=== PATIENT | male | born 1965 | race American Indian/Alaskan Native ===

== ENCOUNTER 2018-04-25 12:00 | Emergency (ER) | payer MEDICAID ==
--- NOTE | 2018-04-25 14:04 | Emergency Department Report ---
ED General Adult HPI - General Chief complaint: Abdominal Pain Stated complaint: DIZZINESS Time Seen by Provider: 04/25/18 13:47 Source: patient Mode of arrival: Ambulatory Limitations: No Limitations - History of Present Illness Initial comments: This is a 53-year-old -Armenian male who presents with multiple complaints. Patient has a past medical history of gout and peptic ulcer disease. Patient states he is having a gout flare with pain to right knee for the past week. Patient states started and right great toe and now and right knee. Patient states initially he had some swelling but continues to have painful range of motion. He is also complaining of pain that is 8 out of 10 on pain scale to right knee and worse with movement. He is concerned because he is left handed and hardly is right hand for repetitive movement. Patient denies swelling or bruising or recent injury to right wrist. He states he went to [facility] but was unable to be seen because they do not take Medicaid insurance. He is also asking for treatment of ulcer irritation. Patient states 2 weeks ago he had increased nausea with burning to upper abdomen. Today he is complaining of epigastric pain that is worse prior to eating. Patient states pain is relieved after eating. Patient is also complaining for dysuria for 1 month. He denies frequency and urgency. He is currently feeling a burning sensation and sharp cramps. Patient denies fever, nausea and vomiting, chest pain, shortness of breath, erythema, or swelling. -: month(s) Location: abdomen (epigastric pain), right, upper extremity (right wrist), lower extremity (right knee) Radiation: non-radiation Severity scale (0 -10): 8 Quality: burning, aching Consistency: intermittent Improves with: eating Worsens with: movement Associated Symptoms: denies other symptoms Treatments Prior to Arrival: NSAID (ibuprofen) - Related Data Previous Rx's Medication Instructions Recorded Last Taken Type Ibuprofen [Motrin 800 MG tab] 800 mg PO Q8HR PRN #15 tablet 04/25/18 Unknown Rx Omeprazole 40 mg PO DAILY #30 capsule. 04/25/18 Unknown Rx Allergies Allergy/AdvReac Type Severity Reaction Status Date / Time No Known Allergies Allergy Unverified 04/25/18 12:09 ED Review of Systems ROS: Stated complaint: DIZZINESS Other details as noted in HPI Constitutional: denies: chills, fever Respiratory: denies: cough, shortness of breath, wheezing Cardiovascular: denies: chest pain, palpitations Gastrointestinal: abdominal pain. denies: nausea, diarrhea Genitourinary: dysuria. denies: urgency, frequency, hematuria, discharge Musculoskeletal: arthralgia (right knee and right wrist pain). denies: back pain, joint swelling Skin: denies: rash, lesions Psychiatric: denies: anxiety, depression ED Past Medical Hx - Past Medical History Previous Medical History?: Yes Additional medical history: gout - Surgical History Past Surgical History?: No - Social History Smoking Status: Never Smoker Substance Use Type: None - Medications Home Medications: Home Medications Medication Instructions Recorded Confirmed Last Taken Type Ibuprofen [Motrin 800 MG tab] 800 mg PO Q8HR PRN #15 tablet 04/25/18 Unknown Rx Omeprazole 40 mg PO DAILY #30 capsule. 04/25/18 Unknown Rx ED Physical Exam - General Limitations: No Limitations General appearance: alert, in no apparent distress, obese (morbidly obese) - Respiratory Respiratory exam: Present: normal lung sounds bilaterally. Absent: respiratory distress - Cardiovascular Cardiovascular Exam: Present: regular rate, normal rhythm. Absent: systolic murmur, diastolic murmur, rubs, gallop - GI/Abdominal GI/Abdominal exam: Present: soft, tenderness (left upper quadrant tenderness), normal bowel sounds. Absent: distended, guarding, rebound, rigid, organomegaly , mass - Expanded Upper Extremity Exam Right Shoulder Exam: Present: normal inspection, full ROM Upper Arm exam: Present: normal inspection, full ROM Elbow exam: Present: normal inspection, full ROM Forearm Wrist exam: Present: normal inspection, full ROM Hand Wrist exam: Present: full ROM, tenderness (in palmar surface). Absent: abrasion, laceration, ecchymosis, deformity, crepidus, dislocation, erythema, amputation, nail avulsion, subungual hematoma Neuro motor exam: Present: wrist extension intact, thumb opposition intact, thumb IP flexion intact, thumb adduction intact, fingers 2-5 abduction intact Neurosensory exam: Present: radial nerve intact, ulnar nerve intact, median nerve intact Vascular: Present: normal capillary refill, radial pulse - Expanded Lower Extremity Exam Right Hip exam: Present: normal inspection, full ROM Upper Leg exam: Present: normal inspection, full ROM Knee exam: Present: pain w/ pronation/supination, full knee extension. Absent: abrasion, laceration, ecchymosis, deformity, crepidus, dislocation, erythema, effusion Lower Leg exam: Present: normal inspection, full ROM Ankle exam: Present: normal inspection, full ROM Foot/Toe exam: Present: normal inspection, full ROM Neuro vascular tendon exam: Present: no vascular compromise Gait: Positive: observed and normal - Neurological Exam Neurological exam: Present: alert, oriented X3 - Psychiatric Psychiatric exam: Present: normal affect, normal mood - Skin Skin exam: Present: warm, dry, intact, normal color. Absent: rash ED Course Vital Signs 04/25/18 04/25/18 12:09 18:30 Temperature 97.9 F Pulse Rate 73 72 Respiratory 18 18 Rate Blood Pressure 145/75 Blood Pressure 148/82 [Left] O2 Sat by Pulse 96 100 Oximetry ED Medical Decision Making - Lab Data Result diagrams: 04/25/18 15:00 - Radiology Data Radiology results: report reviewed, image reviewed RIGHT WRIST, 2 VIEWS: History: Right wrist pain. 2 views views demonstrate the carpal bones to be well mineralized with well preserved bony mineralization and interosseous joint spaces. The carpal and adjacent articular bones have normal contours. The surrounding soft tissues are unremarkable. IMPRESSION: Unremarkable right wrist. EXAM: CT ABDOMEN PELVIS WO CON HISTORY: left upper quadrant tenderness TECHNIQUE: Spiral CT scanning of the abdomen and pelvis. No oral or IV contrast administered. Multiplanar reformations. PRIORS: None. FINDINGS: Abdomen: Visualized lung bases grossly unremarkable. Solid organ evaluation is limited due to lack of IV contrast. Multiple calcification(s) noted in the bilateral kidneys, largest measuring approximately 6 mm in left kidney. No significant hydronephrosis or abnormal perinephric fluid collection. Rounded hypodensity in the right kidney measures approximately 3.5 cm. No radiopaque gallstones. Remainder of visualized abdominal parenchyma grossly unremarkable. Pelvis: No appreciable calcifications or significant dilatation in the distal ureters. Bowel grossly unremarkable. Appendix within normal limits. Shotty lymph nodes scattered along the retroperitoneum may be reactive, but nonspecific. No significant free peritoneal fluid or loculated fluid collection. Abdominal aorta non-aneurysmal. Axial skeleton grossly unremarkable. IMPRESSION: 1. Bilateral nephrolithiasis. No significant hydronephrosis. 2. Right renal hypodensity possibly representing cyst, but nonspecific. Correlation with renal ultrasound may be confirmatory, as clinically indicated. - Medical Decision Making Patient is stable and was examined by me. Vitals stable. Obtained labs, x-ray of right wrist, and CT of abdomen. All labs unremarkable. Review CT and x-ray report with patient. Patient given copy of warts to follow up with primary care provider. Start ibuprofen and omeprazole for gastroenteritis, carpal tunnel and muscle strain. Discussed plan with patient and agreed to plan. No further questions noted by the patient. Discharged home in stable condition. Follow up with PCP in 2-3 days. Critical care attestation.: If time is entered above; I have spent that time in minutes in the direct care of this critically ill patient, excluding procedure time. ED Disposition Clinical Impression: Carpal tunnel syndrome of right wrist, Right wrist pain, Nephrolithiasis, Gastroenteritis Right knee pain Qualifiers: Chronicity: acute Qualified Code(s): M25.561 - Pain in right knee Abdominal pain Qualifiers: Abdominal location: epigastric Qualified Code(s): R10.13 - Epigastric pain Muscle strain of right knee Qualifiers: Encounter type: initial encounter Qualified Code(s): S86.911A - Strain of unspecified muscle(s) and tendon(s) at lower leg level, right leg, initial encounter Disposition: TO HOME OR SELFCARE Is pt being admited?: No Does the pt Need Aspirin: No Condition: Stable Instructions: Muscle Strain (ED), Carpal Tunnel Syndrome (ED), Gastroenteritis (ED) Additional Instructions: Increase fluid intake. Follow-up with primary care provider in 2-3 days for further management and care. Prescriptions: Ibuprofen [Motrin 800 MG tab] 800 mg PO Q8HR PRN #15 tablet PRN Reason: Pain , Severe (7-10) Omeprazole 40 mg PO DAILY #30 capsule. Referrals: [facility] [Outside] - 3-5 Days [facility] [Outside] - 3-5 Days [facility] [Outside] - 3-5 Days Time of Disposition: 18:08 Print Language: UKRAINIAN
[2018-04-25] MEDS ORDERED: NARCAN 2 MG/2 ML ONE (14:09)
--- NOTE | 2018-04-25 15:33 | XRay Report ---
RIGHT WRIST, 2 VIEWS: History: Right wrist pain. 2 views views demonstrate the carpal bones to be well mineralized with well preserved bony mineralization and interosseous joint spaces. The carpal and adjacent articular bones have normal contours. The surrounding soft tissues are unremarkable. IMPRESSION: Unremarkable right wrist.
[2018-04-25 15:37] LABS: Hematocrit 40.6 % (35.5-45.6); Hemoglobin 13.6 gm/dl (11.8-15.2); Mean Corpuscular HGB Conc 34 % (32-34); Mean Corpuscular Hemoglobin 29 pg (28-32); Mean Corpuscular Volume 85 fl (84-94); Platelet Count 219 K/mm3 (140-440); Red Blood Count 4.75 M/mm3 (3.65-5.03); Red Cell Distribution Width 15.1 % (13.2-15.2)
--- NOTE | 2018-04-25 16:39 | Cat Scan Report ---
FINAL REPORT EXAM: CT ABDOMEN PELVIS WO CON HISTORY: left upper quadrant tenderness TECHNIQUE: Spiral CT scanning of the abdomen and pelvis. No oral or IV contrast administered. Multiplanar reformations. PRIORS: None. FINDINGS: Abdomen: Visualized lung bases grossly unremarkable. Solid organ evaluation is limited due to lack of IV contrast. Multiple calcification(s) noted in the bilateral kidneys, largest measuring approximately 6 mm in left kidney. No significant hydronephrosis or abnormal perinephric fluid collection. Rounded hypodensity in the right kidney measures approximately 3.5 cm. No radiopaque gallstones. Remainder of visualized abdominal parenchyma grossly unremarkable. Pelvis: No appreciable calcifications or significant dilatation in the distal ureters. Bowel grossly unremarkable. Appendix within normal limits. Shotty lymph nodes scattered along the retroperitoneum may be reactive, but nonspecific. No significant free peritoneal fluid or loculated fluid collection. Abdominal aorta non-aneurysmal. Axial skeleton grossly unremarkable. IMPRESSION: 1. Bilateral nephrolithiasis. No significant hydronephrosis. 2. Right renal hypodensity possibly representing cyst, but nonspecific. Correlation with renal ultrasound may be confirmatory, as clinically indicated.
[2018-04-25 18:44] VITALS: BP 148/82
== END 2018-04-25 18:35 | disposition home or self-care (01) ==
LOC: ED 12:00
DX: S86.911A Strain of unspecified muscle(s) and tendon(s) at lower leg level, right leg, initial encounter (principal); G56.01 Carpal tunnel syndrome, right upper limb; K52.9 Noninfective gastroenteritis and colitis, unspecified; N20.0 Calculus of kidney; R10.13 Epigastric pain; X58.XXXA Exposure to other specified factors, initial encounter; Y93.89 Activity, other specified; Y99.8 Other external cause status; Y92.89 Other specified places as the place of occurrence of the external cause
CPT/HCPCS: 36415; 74176; 84550; 85027; J2310

== ENCOUNTER 2018-11-12 16:09 | Emergency (ER) | payer OTHER ==
[2018-11-12 16:25] VITALS: BP 148/73
--- NOTE | 2018-11-12 16:28 | Emergency Department Report ---
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 Due to findings the following was ordered: CXR ED Disposition for MSE Condition: Stable
--- NOTE | 2018-11-12 17:44 | XRay Report ---
PROCEDURE: XR CHEST ROUTINE 2V TECHNIQUE: 2 views HISTORY: inhalation of dust, pain with breathing COMPARISONS: None FINDINGS: No infiltrate, pleural effusion, or pneumothorax seen. The cardiomediastinal silhouette is normal. IMPRESSION: No acute abnormality identified. . This document is electronically signed by Ino Wild MD., November 12 2018 05:42:07 PM ET
--- NOTE | 2018-11-12 19:04 | Emergency Department Report ---
ED General Adult HPI - General Chief complaint: Chest Pain Stated complaint: PAINFUL TO BREATH Time Seen by Provider: 11/12/18 16:20 Source: patient Mode of arrival: Ambulatory Limitations: No Limitations - History of Present Illness Initial comments: 53-year-old -Y[place]i male presents emerge department complaining of pain with deep breath and occasional cough after breathing in dust particles from a catalytic converter which she was changing last night. Reports no hemoptysis, no hematemesis, no wheezing,. No fever, chills, sweats. No shortness of breath. Severity scale (0 -10): 7 Quality: sharp Consistency: intermittent Improves with: none Worsens with: other (deep breath) Associated Symptoms: chest pain. denies: confusion, diaphoresis, loss of appetite, malaise, nausea/vomiting, shortness of breath, syncope - Related Data Previous Rx's Medication Instructions Recorded Last Taken Type Ibuprofen [Motrin 800 MG tab] 800 mg PO Q8HR PRN #15 tablet 04/25/18 Unknown Rx Omeprazole 40 mg PO DAILY #30 capsule. 04/25/18 Unknown Rx Ketorolac [Toradol] 10 mg PO Q6H PRN #12 tablet 06/11/18 Unknown Rx methOCARBAMOL [Robaxin TAB] 500 mg PO Q6H PRN #20 tablet 06/11/18 Unknown Rx Colchicine 0.6 mg PO Q8H PRN #12 tablet 07/24/18 Unknown Rx Ibuprofen [Motrin] 600 mg PO Q8H PRN #12 tablet 07/24/18 Unknown Rx predniSONE [Prednisone] 10 mg PO QAM 6 Days #1 tab.ds.pk 07/24/18 Unknown Rx ALBUTEROL Inhaler (OR & NICU) 1 puff IH Q4-6H PRN #1 inha 11/12/18 Unknown Rx [ProAir HFA Inhaler] predniSONE [Deltasone] 50 mg PO QDAY #5 tab 11/12/18 Unknown Rx Allergies Allergy/AdvReac Type Severity Reaction Status Date / Time No Known Allergies Allergy Verified 11/12/18 16:10 ED Review of Systems ROS: Stated complaint: PAINFUL TO BREATH Other details as noted in HPI Constitutional: denies: chills, fever Eyes: denies: eye pain, eye discharge, vision change ENT: denies: ear pain, throat pain Respiratory: denies: cough, shortness of breath, wheezing Cardiovascular: chest pain (with deep breaths). denies: palpitations Endocrine: no symptoms reported Gastrointestinal: denies: abdominal pain, nausea, diarrhea Genitourinary: denies: urgency, dysuria Musculoskeletal: denies: back pain, joint swelling, arthralgia Skin: denies: rash, lesions Neurological: denies: headache, weakness, paresthesias Psychiatric: denies: anxiety, depression Hematological/Lymphatic: denies: easy bleeding, easy bruising ED Past Medical Hx - Past Medical History Additional medical history: gout - Surgical History Past Surgical History?: No - Social History Smoking Status: Never Smoker Substance Use Type: Alcohol - Medications Home Medications: Home Medications Medication Instructions Recorded Confirmed Last Taken Type Ibuprofen [Motrin 800 MG tab] 800 mg PO Q8HR PRN #15 tablet 04/25/18 Unknown Rx Omeprazole 40 mg PO DAILY #30 capsule.dr 04/25/18 Unknown Rx Ketorolac [Toradol] 10 mg PO Q6H PRN #12 tablet 06/11/18 Unknown Rx methOCARBAMOL [Robaxin TAB] 500 mg PO Q6H PRN #20 tablet 06/11/18 Unknown Rx Colchicine 0.6 mg PO Q8H PRN #12 tablet 07/24/18 Unknown Rx Ibuprofen [Motrin] 600 mg PO Q8H PRN #12 tablet 07/24/18 Unknown Rx predniSONE [Prednisone] 10 mg PO QAM 6 Days #1 tab.ds.pk 07/24/18 Unknown Rx ALBUTEROL Inhaler (OR & NICU) 1 puff IH Q4-6H PRN #1 inha 11/12/18 Unknown Rx [ProAir HFA Inhaler] predniSONE [Deltasone] 50 mg PO QDAY #5 tab 11/12/18 Unknown Rx ED Physical Exam - General Limitations: No Limitations General appearance: alert, in no apparent distress - Head Head exam: Present: atraumatic, normocephalic - Eye Eye exam: Present: normal appearance, PERRL - ENT ENT exam: Present: normal exam, normal orophraynx, mucous membranes moist, TM's normal bilaterally - Neck Neck exam: Present: normal inspection, full ROM - Respiratory Respiratory exam: Present: normal lung sounds bilaterally. Absent: respiratory distress, wheezes, chest wall tenderness, accessory muscle use, decreased breath sounds - Cardiovascular Cardiovascular Exam: Present: regular rate, normal rhythm. Absent: systolic murmur, diastolic murmur, rubs, gallop - GI/Abdominal GI/Abdominal exam: Present: soft, normal bowel sounds. Absent: tenderness, guarding, hypoactive bowel sounds, organomegaly, mass, bruit, pulsatile mass - Rectal Rectal exam: Present: deferred - Extremities Exam Extremities exam: Present: normal inspection - Back Exam Back exam: Present: normal inspection. Absent: CVA tenderness (R), CVA tenderness (L), paraspinal tenderness, vertebral tenderness - Neurological Exam Neurological exam: Present: alert, oriented X3 - Psychiatric Psychiatric exam: Present: normal affect, normal mood - Skin Skin exam: Present: warm, dry, intact, normal color. Absent: rash ED Course Vital Signs 11/12/18 16:21 Temperature 98.5 F Pulse Rate 61 Respiratory 24 Rate Blood Pressure 148/73 O2 Sat by Pulse 97 Oximetry ED Medical Decision Making - Radiology Data Radiology results: report reviewed Chest x-ray clear no acute processes Critical care attestation.: If time is entered above; I have spent that time in minutes in the direct care of this critically ill patient, excluding procedure time. ED Disposition Clinical Impression: Chest pain, Pneumonopathy due to inhalation of dust Disposition: DC-01 TO HOME OR SELFCARE Is pt being admited?: No Does the pt Need Aspirin: No Condition: Stable Instructions: Chest Pain (ED) Prescriptions: predniSONE [Deltasone] 50 mg PO QDAY #5 tab ALBUTEROL Inhaler (OR & NICU) [ProAir HFA Inhaler] 1 puff IH Q4-6H PRN #1 inha PRN Reason: Cough Referrals: [facility] [Provider Group] - 3-5 Days
== END 2018-11-12 19:21 | disposition home or self-care (01) ==
LOC: ED 16:09
DX: J66.8 Airway disease due to other specific organic dusts (principal); Z87.39 Personal history of other diseases of the musculoskeletal system and connective tissue
CPT/HCPCS: 71046; 93005; 93010

== ENCOUNTER 2021-03-26 23:19 | Emergency (ER) | payer OTHER ==
--- NOTE | 2021-03-27 04:39 | XRay Report ---
CHEST 2 VIEWS INDICATION / CLINICAL INFORMATION: cough and sob +Covid. COMPARISON: None available. FINDINGS: SUPPORT DEVICES: None. HEART / MEDIASTINUM: No significant abnormality. LUNGS / PLEURA: No significant pulmonary abnormality. No significant pleural effusion. No pneumothora x. ADDITIONAL FINDINGS: No significant additional findings. IMPRESSION: 1. No acute abnormality of the chest. Signer Name: Cresencio Ramírez MD Signed: 03/27/2021 4:35 AM Workstation Name: [employer] [id number]
--- NOTE | 2021-03-27 05:58 | Emergency Department Report ---
- General Chief Complaint: Dyspnea/Respdistress Stated Complaint: JENNIFER/POS COVID Time Seen by Provider: 03/27/21 01:05 Source: patient Mode of arrival: Ambulatory Limitations: No Limitations - History of Present Illness Initial Comments: 56-year-old -[place] male past history of hypertension and elevated BMI presents emergency department complaining of positive Covid test a few days ago experiencing some dyspnea chest aches coryza off and on since the onset. Reports no hemoptysis no hematemesis no fevers chills or sweats no no nausea vomiting no vomiting MD Complaint: sore throat, rhinorrhea, nasal congestion -: Gradual Severity: mild, moderate Severity scale (0 -10): 1 Quality: dull Consistency: constant Improves With: nothing Worsens With: nothing Associated Symptoms: myalgias, rhinorrhea, cough, nausea. denies: right sweats, weight loss, hoarseness - Related Data Previous Rx's Medication Instructions Recorded Last Taken Type Ibuprofen [Motrin 800 MG tab] 800 mg PO Q8HR PRN #15 tablet 04/25/18 Unknown Rx Omeprazole 40 mg PO DAILY #30 capsule.dr 04/25/18 Unknown Rx Ketorolac [Toradol] 10 mg PO Q6H PRN #12 tablet 06/11/18 Unknown Rx methOCARBAMOL [Robaxin TAB] 500 mg PO Q6H PRN #20 tablet 06/11/18 Unknown Rx Colchicine 0.6 mg PO Q8H PRN #12 tablet 07/24/18 Unknown Rx Ibuprofen [Motrin] 600 mg PO Q8H PRN #12 tablet 07/24/18 Unknown Rx predniSONE [Prednisone] 10 mg PO QAM 6 Days #1 tab.ds.pk 07/24/18 Unknown Rx Albuterol Mdi (or & Nicu Only) 1 puff IH Q4-6H PRN #1 inha 11/12/18 Unknown Rx [ProAir HFA Inhaler] predniSONE [Deltasone] 50 mg PO QDAY #5 tab 11/12/18 Unknown Rx Albuterol Mdi (or & Nicu Only) 1 puff IH Q4-6H PRN #1 inha 03/27/21 Unknown Rx [ProAir HFA Inhaler] guaiFENesin/CODEINE [Robitussin AC] 5 ml PO Q6HR #120 oral.liqd 03/27/21 Unknown Rx predniSONE [Deltasone] 20 mg PO QDAY #5 tab 03/27/21 Unknown Rx Allergies Allergy/AdvReac Type Severity Reaction Status Date / Time No Known Allergies Allergy Verified 11/12/18 16:10 ED Review of Systems ROS: Stated complaint: JENNIFER/POS COVID Other details as noted in HPI Comment: All other systems reviewed and negative ED Past Medical Hx - Past Medical History Previous Medical History?: Yes Hx Hypertension: Yes Hx Diabetes: Yes Additional medical history: gout - Surgical History Past Surgical History?: No - Social History Smoking Status: Never Smoker Substance Use Type: Alcohol - Medications Home Medications: Home Medications Medication Instructions Recorded Confirmed Last Taken Type Ibuprofen [Motrin 800 MG tab] 800 mg PO Q8HR PRN #15 tablet 04/25/18 Unknown Rx Omeprazole 40 mg PO DAILY #30 capsule. 04/25/18 Unknown Rx Ketorolac [Toradol] 10 mg PO Q6H PRN #12 tablet 06/11/18 Unknown Rx methOCARBAMOL [Robaxin TAB] 500 mg PO Q6H PRN #20 tablet 06/11/18 Unknown Rx Colchicine 0.6 mg PO Q8H PRN #12 tablet 07/24/18 Unknown Rx Ibuprofen [Motrin] 600 mg PO Q8H PRN #12 tablet 07/24/18 Unknown Rx predniSONE [Prednisone] 10 mg PO QAM 6 Days #1 tab.ds.pk 07/24/18 Unknown Rx Albuterol Mdi (or & Nicu Only) 1 puff IH Q4-6H PRN #1 inha 11/12/18 Unknown Rx [ProAir HFA Inhaler] predniSONE [Deltasone] 50 mg PO QDAY #5 tab 11/12/18 Unknown Rx Albuterol Mdi (or & Nicu Only) 1 puff IH Q4-6H PRN #1 inha 03/27/21 Unknown Rx [ProAir HFA Inhaler] guaiFENesin/CODEINE [Robitussin AC] 5 ml PO Q6HR #120 oral.liqd 03/27/21 Unknown Rx predniSONE [Deltasone] 20 mg PO QDAY #5 tab 03/27/21 Unknown Rx ED Physical Exam - General Limitations: No Limitations General appearance: alert, in no apparent distress - Head Head exam: Present: atraumatic, normocephalic - Eye Eye exam: Present: normal appearance, PERRL Pupils: Present: normal accommodation - ENT ENT exam: Present: normal exam, mucous membranes moist, TM's normal bilaterally - Neck Neck exam: Present: normal inspection, full ROM - Respiratory Respiratory exam: Present: normal lung sounds bilaterally. Absent: respiratory distress - Cardiovascular Cardiovascular Exam: Present: regular rate, normal rhythm. Absent: systolic murmur, diastolic murmur, rubs, gallop - GI/Abdominal GI/Abdominal exam: Present: soft, normal bowel sounds - Rectal Rectal exam: Present: deferred - Extremities Exam Extremities exam: Present: normal inspection - Back Exam Back exam: Present: normal inspection - Neurological Exam Neurological exam: Present: alert, oriented X3 - Psychiatric Psychiatric exam: Present: normal affect, normal mood - Skin Skin exam: Present: warm, dry, intact, normal color. Absent: rash ED Course Vital Signs 03/26/21 23:39 Temperature 99.2 F Pulse Rate 87 Respiratory 16 Rate Blood Pressure 180/82 O2 Sat by Pulse 94 Oximetry ED Medical Decision Making - Radiology Data Radiology results: report reviewed [facility] [address] [place] [address] XRay Report Signed Patient: JEREMY MOHAMUD MR#: [id number] : 1965 Acct:[id number] Age/Sex: 56 / M ADM Date: 03/26/21 Loc: ED Attending Dr: Ordering Physician: ANABEL EMERY Date of Service: 03/27/21 Procedure(s): XR chest routine 2V Accession Number(s): [id number] cc: ANABEL EMERY Fluoro Time In Minutes: CHEST 2 VIEWS INDICATION / CLINICAL INFORMATION: cough and sob +Covid. COMPARISON: None available. FINDINGS: SUPPORT DEVICES: None. HEART / MEDIASTINUM: No significant abnormality. LUNGS / PLEURA: No significant pulmonary abnormality. No significant pleural effusion. No pneumothorax. ADDITIONAL FINDINGS: No significant additional findings. IMPRESSION: 1. No acute abnormality of the chest. Signer Name: Cresencio Ramírez MD Signed: 03/27/2021 4:35 AM Workstation Name: [id number] Transcribed By: [place] Dictated By: Cresencio Ramírez MD Electronically Authenticated By: Cresencio Ramírez MD Signed Date/Time: 07/434 DD/ 3 TD/TT: Print Cancel - Medical Decision Making This patient presents with acute cough, most consistent with Covid call. Differential diagnosis includes bronchitis, pneumonia, asthma, hyperreactive airway disease. Presentation not consistent with acute bacterial pneumonia, influenza, asthma, transient airway hyperresponsiveness. Presentation not consistent with chronic causes of cough (including GERD, asthma, postnasal discharge, medication side effect, CHF, lung cancer or mass). Plan: CXR, supportive care, reassess Critical care attestation.: If time is entered above; I have spent that time in minutes in the direct care of this critically ill patient, excluding procedure time. ED Disposition Clinical Impression: Dyspnea due to COVID-19, Cough, URI (upper respiratory infection) Disposition: TO HOME OR SELFCARE Is pt being admited?: No Does the pt Need Aspirin: No Condition: Stable Instructions: Cool Mist Vaporizer, Shortness of Breath, Adult, [id number], Cough, Adult, [id number], Upper Respiratory Infection, Adult, COVID-19: How to Protect Yourself and Others - CDC, Cough, Adult, Prevent the Spread of COVID-19 if You Are Sick - CDC Prescriptions: predniSONE [Deltasone] 20 mg PO QDAY #5 tab Albuterol Mdi (or & Nicu Only) [ProAir HFA Inhaler] 1 puff IH Q4-6H PRN #1 inha PRN Reason: Cough guaiFENesin/CODEINE [Robitussin AC] 5 ml PO Q6HR #120 oral.liqd Referrals: FREIDA LIU MD [Staff Physician] - 3-5 Days
[2021-03-27 08:08] VITALS: BP 163/95
== END 2021-03-27 07:20 | disposition home or self-care (01) ==
LOC: ED 23:19
DX: U07.1 COVID-19 (principal); J06.9 Acute upper respiratory infection, unspecified; R05 Cough; I10 Essential (primary) hypertension; E11.9 Type 2 diabetes mellitus without complications
CPT/HCPCS: 71046; 99283

== ENCOUNTER 2021-07-12 17:35 | Emergency (ER) | payer OTHER ==
--- NOTE | 2021-07-12 18:29 | Emergency Department Report ---
ED General Adult HPI - General Chief complaint: Chest Pain Stated complaint: CHEST HURTS WHILE SNEEZING Time Seen by Provider: 07/12/21 18:04 Source: patient Mode of arrival: Ambulatory Limitations: No Limitations - History of Present Illness Initial comments: 56-year-old male, history of hypertension, presents to ED with right-sided chest pain. Patient states 3 days ago, he held in a sneeze and felt something pop in his right chest area. Patient here today complaining of continued pain. Worse with movement of torso. Denies any shortness of breath. -: days(s) (3) Location: chest Quality: aching Consistency: constant Improves with: immobilization Worsens with: movement Associated Symptoms: denies: shortness of breath - Related Data Previous Rx's Medication Instructions Recorded Last Taken Type Ibuprofen [Motrin 800 MG tab] 800 mg PO Q8HR PRN #15 tablet 04/25/18 Unknown Rx Omeprazole 40 mg PO DAILY #30 capsule. 04/25/18 Unknown Rx Ketorolac [Toradol] 10 mg PO Q6H PRN #12 tablet 06/11/18 Unknown Rx methOCARBAMOL [Robaxin TAB] 500 mg PO Q6H PRN #20 tablet 06/11/18 Unknown Rx Colchicine 0.6 mg PO Q8H PRN #12 tablet 07/24/18 Unknown Rx Ibuprofen [Motrin] 600 mg PO Q8H PRN #12 tablet 07/24/18 Unknown Rx predniSONE [Prednisone] 10 mg PO QAM 6 Days #1 tab.ds.pk 07/24/18 Unknown Rx Albuterol Mdi (or & Nicu Only) 1 puff IH Q4-6H PRN #1 inha 11/12/18 Unknown Rx [ProAir HFA Inhaler] predniSONE [Deltasone] 50 mg PO QDAY #5 tab 11/12/18 Unknown Rx Albuterol Mdi (or & Nicu Only) 1 puff IH Q4-6H PRN #1 inha 03/27/21 Unknown Rx [ProAir HFA Inhaler] guaiFENesin/CODEINE [Robitussin AC] 5 ml PO Q6HR #120 oral.liqd 03/27/21 Unknown Rx predniSONE [Deltasone] 20 mg PO QDAY #5 tab 03/27/21 Unknown Rx Naproxen [Naprosyn] 500 mg PO BID #20 tablet 07/12/21 Unknown Rx methOCARBAMOL [Robaxin TAB] 500 mg PO Q8HR PRN #20 tablet 07/12/21 Unknown Rx Allergies Allergy/AdvReac Type Severity Reaction Status Date / Time No Known Allergies Allergy Verified 11/12/18 16:10 ED Review of Systems ROS: Stated complaint: CHEST HURTS WHILE SNEEZING Other details as noted in HPI Comment: All other systems reviewed and negative Respiratory: denies: shortness of breath Cardiovascular: chest pain ED Past Medical Hx - Past Medical History Hx Hypertension: Yes Hx Diabetes: Yes Additional medical history: gout - Social History Smoking Status: Never Smoker Substance Use Type: Alcohol - Medications Home Medications: Home Medications Medication Instructions Recorded Confirmed Last Taken Type Ibuprofen [Motrin 800 MG tab] 800 mg PO Q8HR PRN #15 tablet 04/25/18 Unknown Rx Omeprazole 40 mg PO DAILY #30 capsule. 04/25/18 Unknown Rx Ketorolac [Toradol] 10 mg PO Q6H PRN #12 tablet 06/11/18 Unknown Rx methOCARBAMOL [Robaxin TAB] 500 mg PO Q6H PRN #20 tablet 06/11/18 Unknown Rx Colchicine 0.6 mg PO Q8H PRN #12 tablet 07/24/18 Unknown Rx Ibuprofen [Motrin] 600 mg PO Q8H PRN #12 tablet 07/24/18 Unknown Rx predniSONE [Prednisone] 10 mg PO QAM 6 Days #1 tab.ds.pk 07/24/18 Unknown Rx Albuterol Mdi (or & Nicu Only) 1 puff IH Q4-6H PRN #1 inha 11/12/18 Unknown Rx [ProAir HFA Inhaler] predniSONE [Deltasone] 50 mg PO QDAY #5 tab 11/12/18 Unknown Rx Albuterol Mdi (or & Nicu Only) 1 puff IH Q4-6H PRN #1 inha 03/27/21 Unknown Rx [ProAir HFA Inhaler] guaiFENesin/CODEINE [Robitussin AC] 5 ml PO Q6HR #120 oral.liqd 03/27/21 Unknown Rx predniSONE [Deltasone] 20 mg PO QDAY #5 tab 03/27/21 Unknown Rx Naproxen [Naprosyn] 500 mg PO BID #20 tablet 07/12/21 Unknown Rx methOCARBAMOL [Robaxin TAB] 500 mg PO Q8HR PRN #20 tablet 07/12/21 Unknown Rx ED Physical Exam - General Limitations: No Limitations General appearance: alert, in no apparent distress, obese - Head Head exam: Present: atraumatic, normocephalic - Eye Eye exam: Present: normal appearance, EOMI - ENT ENT exam: Present: mucous membranes moist - Neck Neck exam: Present: normal inspection - Respiratory Respiratory exam: Present: normal lung sounds bilaterally, chest wall tenderness (Right anterior chest). Absent: respiratory distress - Cardiovascular Cardiovascular Exam: Present: regular rate, normal rhythm - GI/Abdominal GI/Abdominal exam: Present: soft. Absent: distended, tenderness - Extremities Exam Extremities exam: Present: normal inspection - Neurological Exam Neurological exam: Present: alert, oriented X3 - Psychiatric Psychiatric exam: Present: normal affect, normal mood - Skin Skin exam: Present: warm, dry, intact, normal color ED Course Vital Signs 07/12/21 07/12/21 17:56 19:32 Temperature 98.4 F Pulse Rate 83 Respiratory 18 Rate Blood Pressure 199/58 Blood Pressure 130/68 [Left] O2 Sat by Pulse 97 Oximetry ED Medical Decision Making - EKG Data -: EKG Interpreted by Or EKG shows normal: sinus rhythm, axis, intervals, QRS complexes, ST-T waves Rate: normal - EKG Data Interpretation: no acute changes - Radiology Data Radiology results: report reviewed, image reviewed - Medical Decision Making 56-year-old male presents to ED with right-sided chest pain. Reports he felt a pop in his chest after attempting to hold in a sneeze. Chest x-ray is unremar kable. Patient has some chest wall tenderness on exam. He will be discharged at this time with prescriptions. Blood pressure was repeated and shows improvement in BP without intervention. Outpatient follow-up advised, return precautions given. - Differential Diagnosis Muscle strain, pneumothorax, rib fracture Critical care attestation.: If time is entered above; I have spent that time in minutes in the direct care of this critically ill patient, excluding procedure time. ED Disposition Clinical Impression: Acute chest wall pain Disposition: HOME / SELF CARE / HOMELESS Is pt being admited?: No Condition: Stable Instructions: Nonspecific Chest Pain, Adult Prescriptions: Naproxen [Naprosyn] 500 mg PO BID #20 tablet methOCARBAMOL [Robaxin TAB] 500 mg PO Q8HR PRN #20 tablet PRN Reason: Muscle Spasm Referrals: PRIMARY CARE, [Primary Care Provider] - 3-5 Days Time of Disposition: 19:41
--- NOTE | 2021-07-12 19:30 | XRay Report ---
CHEST 2 VIEWS INDICATION / CLINICAL INFORMATION: R chest pain. COMPARISON: 03/27/2021 FINDINGS: SUPPORT DEVICES: None. HEART / MEDIASTINUM: No significant abnormality. LUNGS / PLEURA: No significant pulmonary or pleural abnormality. No pneumothorax. ADDITIONAL FINDINGS: No significant additional findings. IMPRESSION: 1. No acute findings. Signer Name: Jeffery Dyson MD Signed: 07/12/2021 7:26 PM Workstation Name: [id number]
[2021-07-12 19:32] VITALS: BP 130/68
--- NOTE | 2021-07-15 11:19 | Electrocardiograph Report ---
[facility] Test Date: 2021-07-12 Test Time: 18:19:53 Pat Name: JEREMY MOHAMUD Department: Room: Gender: M Comb Tender: MEGHAN : 1965 Requested By: DOMINGA PINTO Order Number: [id number] Reading MD: Ranjeet Gupta Measurements Intervals [place] Rate: 84 P: 56 NE: 201 QRS: 35 QRSD: 89 T: 57 QT: 358 QTc: 423 Interpretive Statements Sinus rhythm No previous ECG available for comparison Electronically Signed On 07-15-2021 11:19:20 EST by Ranjeet Gupta
== END 2021-07-12 20:08 | disposition home or self-care (01) ==
LOC: ED 17:35
DX: R07.89 Other chest pain (principal); I10 Essential (primary) hypertension; F10.20 Alcohol dependence, uncomplicated; E11.8 Type 2 diabetes mellitus with unspecified complications
CPT/HCPCS: 71046; 93005; 99283

== ENCOUNTER 2022-02-26 14:03 | Emergency (ER) | payer MEDICAID, OTHER ==
[2022-02-26 14:23] VITALS: BP 130/61
== END 2022-02-27 04:37 ==
LOC: ED 14:03
DX: Z04.1 Encounter for examination and observation following transport accident (principal); Z53.21 Procedure and treatment not carried out due to patient leaving prior to being seen by health care provider; V89.2XXA Person injured in unspecified motor-vehicle accident, traffic, initial encounter; Y93.89 Activity, other specified; Y92.89 Other specified places as the place of occurrence of the external cause; Y99.8 Other external cause status